=== PATIENT | female | born 1975 | race American Indian/Alaskan Native ===

== ENCOUNTER 2016-08-10 11:59 | Emergency (ER) | payer SELFPAY ==
[2016-08-10 12:40] LABS: Hematocrit 35.2 % (30.3-42.9); Hemoglobin 11.3 gm/dl (10.1-14.3); Mean Corpuscular HGB Conc 32 % (30-34); Mean Corpuscular Volume 77 fl (79-97); Platelet Count 337 K/mm3 (140-440); Red Blood Count 4.56 M/mm3 (3.65-5.03); Red Cell Distribution Width 14.5 % (13.2-15.2); White Blood Count 5.5 K/mm3 (4.5-11.0)
[2016-08-10 12:46] LABS: Mean Corpuscular Hemoglobin 25 pg (28-32)
[2016-08-10 12:53] LABS: Anion Gap 14 mmol/L; BUN/Creatinine Ratio 18.33; Blood Urea Nitrogen 11 mg/dL (7-17); Calcium 8.8 mg/dL (8.4-10.2); Carbon Dioxide 23 mmol/L (22-30); Chloride 107.1 mmol/L (98-107); Glucose 89 mg/dL (65-100); Potassium 3.4 mmol/L (3.6-5.0); Sodium 141 mmol/L (137-145)
[2016-08-10] MEDS ORDERED: TORADOL IM ONE (13:25)
--- NOTE | 2016-08-10 13:29 | Emergency Department Report ---
ED Headache HPI - General Chief Complaint: Headache Stated Complaint: HEADACHE/DIZZINESS Time Seen by Provider: 08/10/16 13:19 Source: patient Exam Limitations: no limitations - History of Present Illness Timing/Duration: 1-3 hours Quality: mild Head Injury Location: frontal, temporal Recent Head Trauma: frequent headaches, chronic headaches Associated Symptoms: denies: confusion, fatigue, facial pain, fever/chills, flushing, loss of consciousness, nausea/vomiting, nasal congestion, nasal drainage, numbness in legs/feet, seizures, sinus infection, stiff neck, vision changes, weakness Allergies/Adverse Reactions: Allergies oxycodone HCl [From Percocet] Adverse Reaction (Verified 06/04/14 06:43) Unknown Home Medications: Ambulatory Orders Cyclobenzaprine [Flexeril 10mg] 10 mg PO TID PRN #20 tablet 06/04/14 Ibuprofen [Motrin] 800 mg PO Q8H #20 tablet 06/04/14 Promethazine [Phenergan] 25 mg PO Q6H PRN #10 tablet 06/04/14 traMADol [Ultram 50 MG tab] 50 mg PO Q6HR PRN #20 tablet 06/04/14 Amoxicillin [Amoxicillin TAB] 875 mg PO BID #14 tablet 06/10/14 Meclizine HCl [Antivert] 25 mg PO TID PRN #20 tablet 06/10/14 Cyclobenzaprine HCl [Flexeril 5 MG TAB] 5 mg PO TID #30 tab 12/31/14 Dicyclomine [Bentyl] 20 mg PO QID PRN #20 tablet 12/31/14 Ibuprofen [Motrin] 800 mg PO Q8HR PRN #30 tablet 12/31/14 Promethazine [Phenergan TAB] 25 mg PO Q6HR PRN #10 tab 12/31/14 methylPREDNISolone [Medrol Dose Alfredo] 4 mg PO QDAY 6 Days 12/31/14 traMADol [Ultram 50 MG tab] 50 mg PO Q6HR PRN #20 tablet 12/31/14 Diclofenac Sodium 75 mg PO BID #14 tablet. 08/10/16 ED Review of Systems ROS: Stated complaint: HEADACHE/DIZZINESS Other details as noted in HPI Comment: All other systems reviewed and negative ED Past Medical Hx - Past Medical History Hx Headaches / Migraines: Yes (TENSION HEADACHE) Additional medical history: sciatica - Surgical History Additional Surgical History: TUBAL LIGATION,BIOPSY RT BREAST - Social History Smoking Status: Never Smoker Substance Use Type: Alcohol - Medications Home Medications: Home Medications Medication Instructions Recorded Confirmed Last Taken Type Cyclobenzaprine [Flexeril 10mg] 10 mg PO TID PRN #20 tablet 06/04/14 06/10/14 Rx Ibuprofen [Motrin] 800 mg PO Q8H #20 tablet 06/04/14 06/10/14 06/10/14 Rx Promethazine [Phenergan] 25 mg PO Q6H PRN #10 tablet 06/04/14 06/10/14 06/10/14 Rx traMADol [Ultram 50 MG tab] 50 mg PO Q6HR PRN #20 tablet 06/04/14 06/10/1406/10 Rx Amoxicillin [Amoxicillin TAB] 875 mg PO BID #14 tablet 06/10/14 Unknown Rx Meclizine HCl [Antivert] 25 mg PO TID PRN #20 tablet 06/10/14 Unknown Rx Cyclobenzaprine HCl [Flexeril 5 MG 5 mg PO TID #30 tab 12/31/14 Unknown Rx TAB] Dicyclomine [Bentyl] 20 mg PO QID PRN #20 tablet 12/31/14 Unknown Rx Ibuprofen [Motrin] 800 mg PO Q8HR PRN #30 tablet 12/31/14 Unknown Rx Promethazine [Phenergan TAB] 25 mg PO Q6HR PRN #10 tab 12/31/14 Unknown Rx methylPREDNISolone [Medrol Dose 4 mg PO QDAY 6 Days 12/31/14 Unknown Rx Alfredo] traMADol [Ultram 50 MG tab] 50 mg PO Q6HR PRN #20 tablet 12/31/14 Unknown Rx Diclofenac Sodium 75 mg PO BID #14 tablet. 08/10/16 Unknown Rx ED Physical Exam - General Limitations: No Limitations General appearance: alert, in no apparent distress - Head Head exam: Present: atraumatic, normocephalic - Eye Eye exam: Present: normal appearance - ENT ENT exam: Present: mucous membranes moist - Neck Neck exam: Present: normal inspection - Respiratory Respiratory exam: Present: normal lung sounds bilaterally. Absent: respiratory distress - Cardiovascular Cardiovascular Exam: Present: regular rate, normal rhythm. Absent: systolic murmur, diastolic murmur, rubs, gallop - GI/Abdominal GI/Abdominal exam: Present: soft, normal bowel sounds - Extremities Exam Extremities exam: Present: normal inspection - Back Exam Back exam: Present: normal inspection - Neurological Exam Neurological exam: Present: alert, oriented X3 - Psychiatric Psychiatric exam: Present: normal affect, normal mood - Skin Skin exam: Present: warm, dry, intact, normal color. Absent: rash ED Course Vital Signs 08/10/16 12:15 Temperature 98.7 F Pulse Rate 84 Respiratory 18 Rate Blood Pressure 149/95 O2 Sat by Pulse 100 Oximetry ED Medical Decision Making - Lab Data Result diagrams: 08/10/16 12:22 08/10/16 12:22 - Medical Decision Making patient with her usual case of migraine headaches,. she reports the same pain as before , no sudden onset, normal neuro exam and neck exam , will give toradol and dc. no need for head ct Critical care attestation.: If time is entered above; I have spent that time in minutes in the direct care of this critically ill patient, excluding procedure time. ED Disposition Clinical Impression: Migraine Disposition: DISCHARGED TO HOME OR SELFCARE Is pt being admited?: No Does the pt Need Aspirin: No Condition: Good Instructions: Migraine Headache (ED) Prescriptions: Diclofenac Sodium 75 mg PO BID #14 tablet. Referrals: PRIMARY CARE, [Primary Care Provider] - 3-5 Days Forms: Work/School Release Form(ED) Time of Disposition: 13:29
[2016-08-10 13:50] VITALS: BP 149/98
== END 2016-08-10 13:39 | disposition home or self-care (01) ==
LOC: ED 11:59
DX: G43.909 Migraine, unspecified, not intractable, without status migrainosus (principal); Z88.8 Allergy status to other drugs, medicaments and biological substances
CPT/HCPCS: 36415; 80048; 85027; 96372; 99283; J1885

== ENCOUNTER 2017-03-18 11:08 | Emergency (ER) | payer SELFPAY | END 2017-03-18 12:30 | LOC: ED 11:08 | DX: R05 Cough (principal); R09.81 Nasal congestion; Z53.21 Procedure and treatment not carried out due to patient leaving prior to being seen by health care provider ==